=== PATIENT | male | born 1960 | race Two or more races ===

== ENCOUNTER 2017-07-24 18:13 | Emergency (ER) | payer MEDICAID ==
[~2017-07-24] VITALS: Ht 175.3 cm; Wt 76.0 kg
[2017-07-24] MEDS ORDERED: NALOXONE 1 MG/ML, 2ML IVPush ONE (18:30)
[2017-07-24] MEDS ORDERED: SODIUM CHLORIDE 0.9% 1,000ML IVBOLUS ONE (18:30)
[2017-07-24] MEDS ORDERED: PLEASE ENTER ALLERGIES MC SCH ×2 (19:00)
[2017-07-24 19:49] VITALS: BP 115/76
[2017-07-24] MEDS ORDERED: NALOXONE 1 MG/ML, 2ML ONE (20:11)
== END 2017-07-24 22:56 | disposition home or self-care (01) ==
LOC: ED 22:50
DX: F10.120 Alcohol abuse with intoxication, uncomplicated (principal)
CPT/HCPCS: 36415; 80307; 96361; 96374; 99284; J2310; J7030; G0479